=== PATIENT | female | born 1995 | race Caucasian/White ===

== ENCOUNTER 2019-11-21 11:13 | Emergency (ER) | payer BC, MEDICAID ==
--- OUTSIDE RECORDS SUMMARY | 2019-11-21 11:23 | XMS REPORT | Continuity of Care Document ---
:1995 External Reference #:[id number] Author Name Belle Guevara NP Address [address] [place] [id number] Care Team Providers Name Role Phone Teddy Hernández MD Care Team Information Facility Specialist [phone] Problems Active Problems Provider Date Smoker Telly Hernandez NP Onset: 08/04/2015 Social History Type Date Description Comments Sex Female Tobacco Use Reviewed: 02/23/19 Never Smoked Cigars Tobacco Use Reviewed: 02/23/19 Never Smoked A Pipe Smoking Status Reviewed: 02/23/19 Never Smoked A Pipe Tobacco Use Reviewed: 02/23/19 Never Used Smokeless Tobacco ETOH Use Currently consumes 2-3 drinks per week. alcohol Risks of underage drinking. Recreational Drug Use Denies Drug Use Tobacco Use Start: Unknown End: Patient is a former Unknown smoker Recreational Drug Use Teaching provided regarding Naloxone/Narcan Training Available At [facility] Tattoo/Piercing Tattoo x 2, both [place] Tattoo/Piercing Pierced nipples with rods almost a year ago. Sun Exposure Uses sunscreen Allergies, Adverse Reactions, Alerts Description No Known Drug Allergies Medications Active Medications SIG Qnty Indications Ordering Date Provider Metronidazole one tab by mouth 14tabs N76.1 Belle Guevara, 11/19/2019 500mg twice daily x 7 days COUNSELOR AT [employer] Tablets no etoh Metrogel-Vaginal one applicatorful 70gm N76.1 Belle Guevara, 11/19/2019 vaginally once a day COUNSELOR [employer] 0.75% Gel at bedtime twice a week for 4 months. Begin this the week after completing the anitbiotic pills. Ortho-Cyclen (28) 1 by mouth every day 84tabs Z30.41 Belle Guevara, 02/23 COUNSELOR AT [employer] 0.25-35mg-mcg Tablets History Medications Doxycycline Hyclate one by mouth twice a 14caps N76.1 Belle French Paola, - day x 7 days COUNSELOR AT [employer] 11/19/2019 100mg Capsules Fluconazole one tab orally x one 1tabs B37.3 Belle Tannerandrew, 10/25/2019 - 150mg dose after COUNSELOR [employer] 11/19/2019 Tablets completing antibiotics Zithromax two tabs by mouth x 2tabs Belle French Paola, 10/01/2019 - 500mg 1 COUNSELOR [employer] 10/25/2019 Tablets Metronidazole One applicatorful 45gm N76.1 Belle French Paola, 09/10/2019 - 0.75% vaginally at bedtime COUNSELOR [employer] 10/25/2019 Gel x 5 days Metronidazole one tab by mouth 14tabs Belle Duncanbryson, 06/17/2019 - 500mg twice daily x 7 days COUNSELOR [employer] 09/10/2019 Tablets no etoh Metronidazole one tab by mouth 14tabs N76.1 Belle French Paola, 06/04/2019 - 500mg twice daily x 7 days COUNSELOR AT [employer] 09/10/2019 Tablets no etoh Medications Administered in Office Medication SIG Qnty Indications Ordering Provider Date Contraceptive Pills Control [facility] 08/31/2015 Injection Contraceptive Pills Control Telly Hernandez, COUNSELOR AT [employer] 08/04/2015 Injection Contraceptive Pills Control [facility] 06/16/2015 Injection Contraceptive Pills Control [facility] 12/07/2014 Injection Immunizations Description No Information Available Vital Signs Date Vital Result Comment 11/19/2019 11:55am Body Temperature 98.4 F BP Systolic 134 mmHg BP Diastolic 67 mmHg Heart Rate 80 /min 10/25/2019 10:37am BP Systolic 132 mmHg BP Diastolic 80 mmHg Heart Rate 92 /min Height 60 inches 5'0" Weight 104.00 lb BMI (Body Mass Index) 20.3 kg/m2 Results Test Acquired Date Facility Test Result H/L Range Note Wet Prep.... 11/19/2019 [facility] WBC Smear 0 Clue Cells Vag Fluid Wet Prep many Elaine Wet Prep 0 Lactobacillus Wet Prep few Whiff Wet Prep ++ Bacteria Wet Prep n/a PH Wet Prep 7.5 Misc Other Test no trich seen Chlamydia/N. 10/25/2019 [facility] Chlamydia NOT DETECTED Normal Not Detected Gonorrhoeae Rna, Trachomatis Tma, Uroge Rna, Tma, Urogenital Neisseria Gonorrhoeae Rna, Tma, Urogenital NOT DETECTED Normal Not Detected Comment (SEE NOTE) 1 Laboratory test finding 10/25/2019 [facility] Enhanced PDF Report SEE IMAGE [id number] Wet Prep.... 10/25/2019 [facility] WBC Smear 0 Clue Cells Vag Fluid Wet Prep many Elaine Wet Prep few Lactobacillus Wet Prep few Whiff Wet Prep ++ Bacteria Wet Prep n/a PH Wet Prep 7.5 Misc Other Test no trich seen Chlamydia/N. 09/10/2019 [facility] Chlamydia NOT DETECTED Normal Not Detected Gonorrhoeae Rna, Trachomatis Tma, Uroge Rna, Tma, Urogenital Neisseria Gonorrhoeae Rna, Tma, Urogenital NOT DETECTED Normal Not Detected Comment (SEE NOTE) 2 Laboratory test 09/10/2019 [facility] Enhanced PDF Report SEE IMAGE finding [id number] Laboratory test 09/10/2019 [facility] Mycoplasma Hominis/ see note Abn 3 finding Ureaplasma Culture Enhanced PDF Report [id number] SEE IMAGE Wet Prep.... 09/10/2019 [facility] WBC Smear 0 Clue Cells Vag Fluid Wet Prep many Elaine Wet Prep 0 Lactobacillus Wet Prep many Whiff Wet Prep neg. Bacteria Wet Prep n/a PH Wet Prep 7 Misc Other Test no trich seen Chlamydia/N 06/04/2019 CT,Rna,Tma,Urogenital NOT DETECTED Not Detected 4 Gonorroeae Rna Tma Urogenit GC Rna,Tma,Urogen NOT DETECTED Not Detected 5 Wet Prep.... 06/04/2019 [facility] WBC Smear 0 Clue Cells Vag Fluid Wet Prep many Elaine Wet Prep 0 Lactobacillus Wet Prep few Whiff Wet Prep ++ Bacteria Wet Prep n/a PH Wet Prep 7.5 Misc Other Test no trich 1 The analytical performance characteristics of this assay, when used to test SurePath(TM) specimens have been determined by [employer]. The modifications have not been cleared or approved by the FDA. This assay has been validated pursuant to the CLIA regulations and is used for clinical purposes. For additional information, please refer to https://education.[employer]/faq/GJY309 (This link is being provided for information/ educational purposes only.) 2 This test was performed using the APTIMA COMBO2 Assay ([employer] The analytical performance characteristics of this assay, when used to test SurePath specimens have been determined by [facility]. 3 UREAPLASMA CULT (MYCO. T) RESULT/COMMENT: Ureaplasma urealyticum not isolated MYCOPLASMA HOMINIS CULT RESULT/COMMENT: *Presumptive Mycoplasma hominis isolated => REVISED: Change in test result(s) PLEASE DISREGARD PREVIOUSLY REPORTED INFORMATION BELOW: (The information below was originally reported on 09/19/2019 at 8:13 PM) MYCOPLASMA HOMINIS/ UREAPLASMA CULTURE see note ABN UREAPLASMA CULT (MYCO. T) RESULT/COMMENT: Ureaplasma urealyticum not isolated 4 This test was performed using the APTIMA COMBO2(R) Assay ([employer]PRO[employer](R). The analytical performance characteristics of this assay, when used to test SurePath(R) specimens have been determined by [facility]. 5 This test was performed using the APTIMA COMBO2(R) Assay (GEN-PROBE(R). The analytical performance characteristics of this assay, when used to test SurePath(R) specimens have been determined by [employer]. Procedures Description No Information Available Medical Devices Description No Information Available Encounters Description No Information Available Assessments Date Code Description Provider 11/19/2019 N76.1 Subacute and chronic vaginitis Belle Guevara, ANNMARIE 11/19/2019 Z30.41 Encounter for surveillance of contraceptive Belle Guevara NP pills 11/19/2019 Z11.3 Encounter for screening for infections with a Belle Guevara NP predominantly sexual mode of transmission 11/19/2019 E55.9 Vitamin D deficiency, unspecified Belle Guevara NP 10/25/2019 A49.3 Mycoplasma infection, unspecified site Belle Guevara NP 10/25/2019 Z30.41 Encounter for surveillance of contraceptive Belle Guevara NP pills 10/25/2019 N76.0 Acute vaginitis Belle Guevara, ANNMARIE 10/25/2019 B37.3 Candidiasis of vulva and vagina Belle Guevara NP 10/25/2019 Z11.3 Encounter for screening for infections with a Belle Guevara NP predominantly sexual mode of transmission 10/25/2019 Z13.9 Encounter for screening, unspecified Belle Guevara NP 09/10/2019 N76.0 Acute vaginitis Belle Guevara NP 09/10/2019 Z30.41 Encounter for surveillance of contraceptive Belle Guevara ANNMARIE pills 09/10/2019 Z11.3 Encounter for screening for infections with a Belle French ANNMARIE Guevara predominantly sexual mode of transmission 09/10/2019 Z13.9 Encounter for screening, unspecified Belle French ANNMARIE Guevara 06/04/2019 N76.0 Acute vaginitis Belle French ANNMARIE Guevara 06/04/2019 Z30.41 Encounter for surveillance of contraceptive Belle Guevara ANNMARIE pills 06/04/2019 Z11.3 Encounter for screening for infections with a Belle DuncanbarbieandrewANNMARIE predominantly sexual mode of transmission 06/04/2019 Z13.9 Encounter for screening, unspecified Belle French ANNMARIE Guevara Plan of Treatment 11/19/2019 - Belle GuevaraANNMARIEN76.1 Subacute and chronic vaginitisNew Medication:Metronidazole 500 mg - one tab by mouth twice daily x 7 days no etohMetrogel-Vaginal 0.75 % - one applicatorful vaginally once a day at bedtime twice a week for 4 months. Begin this the week after completing the anitbiotic pills.New Labs:Vitamin D 1,25 + 25 Hydroxy, Ordered: 11/19/19Comments:Patient is positive again for BV by wet prep. Will treat as a recurrent/ chronic BV. Advised patientthat two option included extermination inspector use of Metrogel vs extermination inspector use boric acid suppositories or a combination of both. She prefers to use Metrogel. States that she is already on probiotics. Rx metronidazole oral x 7 days then Metrogel vaginally twice weekly for up to 4 months. Reviewed use of, side effects and precautions of abx use. Advised no ETOH. Advised consistent condom use. Will check vitamin D level due to possible correlation between vitamin D level and chronic BVFollow up:prn recurrent of sx or if sx do not resolve. Advised her to call office if she develops yeast symptoms.Z30.41 Encounter for surveillance of contraceptive pillsComments:Patient to continue on ocp. Reviewed use of, side effects and precautions with patient who states understanding. Patient is aware of ECP.Follow up:when annual is dueZ11.3 Encounter for screening for infections with a predominantly sexual mode of transmissionNew Labs:Chlamydia/N. Gonorrhoeae Rna, Tma, Uroge, Ordered: Comments:Reviewed STD risks and prevention with patient. Patient states understanding. Condoms given to patient.E55.9 Vitamin D deficiency, unspecifiedNew Labs:Vitamin D 1,25 + 25 Hydroxy, Ordered: 11/19/19Comments:Due to chronic BV, suspect vitamin D deficiency. Will check Vitamin D level Functional Status Description No Information Available Mental Status Description No Information Available Referrals Description No Information Available
--- OUTSIDE RECORDS SUMMARY | 2019-11-21 11:23 | XMS REPORT | Continuity of Care Document ---
:1995 External Reference #:[id number] Author Name Belle Guevara NP Address [address] [place] [id number] Care Team Providers Name Role Phone Teddy Hernández MD Care Team Information Building Rental Superintendent [phone] Problems Active Problems Provider Date Smoker Telly [...] Teaching provided regarding Naloxone/Narcan Training Available At [facility] Tattoo/Piercing Tattoo x 2, both [place] Tattoo/Piercing Pierced nipples with rods almost a year ago. Sun Exposure Uses sunscreen Allergies, Adverse Reactions, Alerts Description No Known Drug Allergies Medications Active Medications SIG Qnty Indications Ordering Date Provider Metronidazole one tab by mouth 14tabs N76.1 Belle Guevara, 11/19/2019 500mg twice daily x 7 days IMPLEMENTATION SERVICES ANALYST Tablets no etoh Metrogel-Vaginal one applicatorful 70gm N76.1 Belle Guevara, 11/19/2019 vaginally once a day IMPLEMENTATION SERVICES ANALYST 0.75% Gel at bedtime twice a week for 4 months. Begin this the week after completing the anitbiotic pills. Ortho-Cyclen (28) 1 by mouth every day 84tabs Z30.41 Belle Guevara, 02/23 IMPLEMENTATION SERVICES ANALYST 0.25-35mg-mcg Tablets History Medications Doxycycline Hyclate one by mouth twice a 14caps N76.1 Belle French Paola, - day x 7 days IMPLEMENTATION SERVICES ANALYST 11/19/2019 100mg Capsules Fluconazole one tab orally x one 1tabs B37.3 Belle Tannerandrew, 10/25/2019 - 150mg dose after IMPLEMENTATION SERVICES ANALYST 11/19/2019 Tablets completing antibiotics Zithromax two tabs by mouth x 2tabs Belle French Paola, 10/01/2019 - 500mg 1 IMPLEMENTATION SERVICES ANALYST 10/25/2019 Tablets Metronidazole One applicatorful 45gm N76.1 Belle French Paola, 09/10/2019 - 0.75% vaginally at bedtime IMPLEMENTATION SERVICES ANALYST 10/25/2019 Gel x 5 days Metronidazole one tab by mouth 14tabs Belle Duncanbryson, 06/17/2019 - 500mg twice daily x 7 days IMPLEMENTATION SERVICES ANALYST 09/10/2019 Tablets no etoh Metronidazole one tab by mouth 14tabs N76.1 Belle French Paola, 06/04/2019 - 500mg twice daily x 7 days IMPLEMENTATION SERVICES ANALYST 09/10/2019 Tablets no etoh Medications Administered in Office Medication SIG Qnty Indications Ordering Provider Date Contraceptive Pills Control [facility] 08/31/2015 Injection Contraceptive Pills Control Telly Hernandez, IMPLEMENTATION SERVICES ANALYST 08/04/2015 Injection Contraceptive Pills Control [facility] 06/16/2015 Injection Contraceptive Pills Control [facility] 12/07/2014 Injection Immunizations Description No Information Available [...] [facility] Enhanced PDF Report SEE IMAGE [id number] Wet Prep.... 10/25/2019 [facility] WBC Smear 0 [...] [facility] Enhanced PDF Report SEE IMAGE finding [id number] Laboratory test 09/10/2019 [facility] Mycoplasma Hominis/ see note Abn 3 finding Ureaplasma Culture Enhanced PDF Report [id number] SEE IMAGE Wet Prep.... 09/10/2019 [facility] WBC [...] test SurePath(TM) specimens have been determined by [employer]. The modifications have not been cleared or approved by the FDA. This assay has been validated pursuant to the CLIA regulations and is used for clinical purposes. For additional information, please refer to https://education.[employer]/faq/XLI247 (This link is being provided for information/ educational purposes only.) 2 This test was performed using the APTIMA COMBO2 Assay ([employer] The analytical performance characteristics of this assay, when used to test SurePath specimens have been determined by [facility]. 3 UREAPLASMA CULT (MYCO. T) RESULT/COMMENT: [...] test SurePath(R) specimens have been determined by [facility]. 5 This test was performed using the APTIMA COMBO2(R) Assay (GEN-PROBE(R). The analytical performance characteristics of this assay, when used to test SurePath(R) specimens have been determined by [facility]. Procedures Description No Information Available Medical Devices [...] chronic BV. Advised patientthat two option included roasterman use of Metrogel vs roasterman use boric acid suppositories or a combination [...]
[2019-11-21 12:20] VITALS: BP 139/86
--- NOTE | 2019-11-21 12:50 | UC ---
Skin Complaint HPI - HPI Summary HPI Summary: 24 year old female presents with upper lip swelling after undergoing hyleron pen injection of hyaluronic acid done by project development coordinator yesterday on her lips. Denies pain, numbness or tingling. Notes bruising of upper lip, no difficulty swallowing nor breathing. No other rash. - History of Current Complaint Chief Complaint: UCGeneralIllness Time Seen by Provider: 11/21/19 12:16 Stated Complaint: POSS ALLERGIC REACTION Hx Obtained From: Patient Hx Last Menstrual Period: 11/12/19 ?: No Onset/Duration: Sudden Onset - after needleless hyaluronic acid injection. Skin Exposure Onset/Duration: Days Ago - One day Pain Intensity: 0 Location: Other - upper lip - Allergy/Home Medications Allergies/Adverse Reactions: Allergies Allergy/AdvReac Type Severity Reaction Status Date / Time No Known Allergies Allergy Verified 11/21/19 12:16 Home Medications: Home Medications Norgestimate-Ethinyl Estradiol [Sprintec 28 Day Tablet] 1 tab PO DAILY 05/11/16 [History Confirmed 11/21/19] metroNIDAZOLE * [Flagyl] 500 mg PO BID 11/21/19 [History Confirmed 11/21/19] PMH/Surg Hx/FS Hx/Imm Hx Previously Healthy: Yes - Surgical History Surgical History: Yes Surgery Procedure, Year, and Place: wisdom teeth extraction - Family History Known Family History: Positive: Other - denies any family history. - Social History Alcohol Use: Weekly Alcohol Amount: twice weekly Substance Use Type: None Smoking Status (MU): Never Smoked Tobacco Have You Smoked in the Last Year: No Review of Systems All Other Systems Reviewed And Are Negative: Yes Constitutional: Positive: Negative Skin: Positive: Bruising - and swelling of upper lip. No significant swelling of lower lip. Eyes: Positive: Negative ENT: Positive: Negative Respiratory: Negative: Shortness Of Breath, Cough Cardiovascular: Negative: Palpitations, Chest Pain Gastrointestinal: Negative: Abdominal Pain, Vomiting, Diarrhea, Nausea Genitourinary: Positive: Negative Motor: Positive: Negative Neurovascular: Positive: Negative Musculoskeletal: Positive: Negative Neurological/Mental Status: Positive: Negative Psychological: Positive: Negative Is Patient Immunocompromised?: No Physical Exam Triage Information Reviewed: Yes Appearance: Well-Appearing Vital Signs: Initial Vital Signs Temp 99.4 F 11/21/19 12:14 Pulse 82 02/23/20 12:14 Resp 13 11/21/19 12:14 BP 139/86 11/21/19 12:14 Pulse Ox 100 11/21/19 12:14 Vital Signs Reviewed: Yes Eye Exam: Normal ENT: Positive: Pharynx normal, TMs normal, Uvula midline, Other - swelling and bruising of upper lip, minimla bruising and swelling of lower lip.. Negative: Sinus tenderness Neck: Positive: Supple, Nontender, No Lymphadenopathy Respiratory: Positive: Lungs clear, Normal breath sounds Cardiovascular: Positive: RRR, No Murmur, Brisk Capillary Refill Abdomen Description: Positive: Nontender, Soft Musculoskeletal Exam: Normal Neurological Exam: Normal Psychological Exam: Normal Skin: Positive: Other - mild erythema around brows where eyebrow hairs were removed. Course/Dx - Course Course Of Treatment: Traumatic lip swelling, no evidence of allergic reaction. - Diagnoses Provider Diagnosis: Traumatic lip pain Discharge ED - Sign-Out/Discharge Documenting (check all that apply): Patient Departure All imaging exams completed and their final reports reviewed: No Studies - Discharge Plan Condition: Stable Disposition: HOME Referrals: Teddy Borja MD [Primary Care Provider] - Additional Instructions: Ice lip. Take ibuprofen and Claritin as needed for swelling. Follow-up with central supply manager to inform of reaction that occurred. Follow-up at Urgent Care if symptoms persist or worsen, or if difficulty swallowing or breathing develop. - Billing Disposition and Condition Condition: STABLE Disposition: Home
== END 2019-11-21 12:55 | disposition home or self-care (01) ==
LOC: UCCORT 11:13
DX: S09.93XA Unspecified injury of face, initial encounter (principal); X58.XXXA Exposure to other specified factors, initial encounter; Y92.9 Unspecified place or not applicable
CPT/HCPCS: 99211; G0463